=== PATIENT | female | born 1955 | race African-American/Black ===

== ENCOUNTER → 2020-08-25 | Outpatient (CLI) | payer OTHER | LOC: ULTRA 10:03 | PROVIDERS: ATTEND Family Medicine | DX: M79.661 Pain in right lower leg (principal) ==

== ENCOUNTER → 2021-02-23 | Outpatient (CLI) | payer OTHER | LOC: MRI 02-22 09:03 | PROVIDERS: ATTEND Family Medicine | DX: M47.816 Spondylosis without myelopathy or radiculopathy, lumbar region (principal) ==

== ENCOUNTER → 2021-02-23 | Outpatient (CLI) | payer OTHER | LOC: CAT 10:36 | PROVIDERS: ATTEND Family Medicine | DX: Z13.6 Encounter for screening for cardiovascular disorders (principal) ==

== ENCOUNTER → 2021-08-08 | Outpatient (CLI) | payer OTHER ==
[~2021-08-08] VITALS: Ht 167.6 cm; Wt 112.4 kg
[~2021-08-08] MED LIST: AMLODIPINE-OLM1 EAC3 PO; ASA81BEC PO; FUROSEMIDE 20 M20 MG PO; GARLIC1000 MG PO; GEMTESA75 MG PO; LIPITOR10 MG PO; MELOXICAM15 MG PO; OMEPRAZOLE40 MG PO; SERTRALINE HCL100 MG PO; TURMERIC COMPL1 EACH PO; VITAMIN B12-FO1 EAC1 PO; VITAMIN D325 MC2 PO
--- NOTE | ~2021-08-08 | HPC ---
[facility] [address] [address] PAIN MANAGEMENT CONSULTATION Name: CEM HUDDLESTON Room #: REG DORENE Del RioEde#: [id number] Admission: 08/08/21 Attend Phys: Joes Manuel Harris DO Discharge: Date of : 57 Report #: [id number] THIS REPORT FOR: cc: Jose Manuel Thomas,Jose Manuel Fleming DO ~ cc: Jose Manuel Thomas DO DATE OF SERVICE: 08/08/2021 REFERRING PHYSICIAN: Dr. Jose Manuel Thomas. CHIEF COMPLAINT: Low back pain, bilateral lower extremity pain. HISTORY OF PRESENT ILLNESS: As you know, the patient is a pleasant 66-year-old female who has had a 30-year history of low back pain with bilateral lower extremity pain. The patient states her pain began in the early and has just progressively worsened. There has been no injury or trauma. She has "just been putting up with it." She has noted increasing pain over the past couple of years that ultimately prompted a discussion with the primary care physician, Dr. Thomas, in regards to this chronic back pain issue. She has not had formalized physical therapy. She has been utilizing some [id number] medications for pain control. She has also been utilizing marijuana as part of her treatment options. She describes her pain as more of a constant, shooting, aching, throbbing, sharp, pounding sensation, exacerbated with walking, improves with sitting down. She has been reporting pain scores as high as 10/10. This has prompted a referral to our clinic to discuss interventional treatment options. The patient reports today her pain is continuous, steady constant and rhythmic. She describes the pain as shooting, aching, crushing, gnawing, throbbing, pounding, sharp and stabbing. Places pain score 10/10. Daily average at 10/10. Worst pain has been is 10/10. The patient states pain is exacerbated with walking, improves with sitting down. She localizes pain in the low back area and over the bilateral SI joints. She also is complaining of left hip pain. She has been referred to our service to discuss interventional treatment options. PAST MEDICAL HISTORY: 1. Hypertension. 2. Degenerative joint disease. 3. Osteoarthritis. 4. Dyslipidemia. PAST SURGICAL HISTORY: 1. Tonsillectomy. 2. Anal fissure repair. [address] [address] PAIN MANAGEMENT CONSULTATION Name: FLAQUITOFORT WAINWRIGHT Room #: REG DORENE Del RioEde#: [id number] Admission: 08/08/21 Attend Phys: Jose Manuel Harris DO Discharge: Date of : 57 Report #: [id number] 3. Appendectomy. 4. Cholecystectomy. 5. Hysterectomy. 6. Thyroidectomy. SOCIAL HISTORY: The patient denies tobacco, alcohol or IV or illicit drug use. She is retired, retired about 20 years ago. She is not receiving workmen's compensation nor is she trying to obtain disability benefits. She is not in litigation in regards to pain. She is unaccompanied at today's visit. REVIEW OF SYSTEMS: Positive for night sweats, fatigue and weakness, wearing corrective eyewear, hearing loss with tinnitus, palpitations, abdominal pain, frequent urination, nocturia, incontinence or dribbling to urine, tremors, varicose veins, depression, low back pain, bilateral lower extremity pain. All other review of systems negative per 12-point review of systems other than those listed in history of present illness. Pain impact score 51 of 70, severe interference of daily activities secondary to pain. ALLERGIES: CODEINE. CURRENT MEDICATIONS: Amlodipine/olmesartan 10/40 once a day, aspirin 81 mg per day, atorvastatin 10 mg per day, cholecalciferol 25 mcg per day, furosemide 20 mg once a day, garlic 1000 mg once a day, omeprazole 40 mg per day, sertraline 100 mg per day, turmeric 1 tab per day, Vibegron 75 mg once a day, cyanocobalamin 1 tab per day, meloxicam 15 mg once a day. IMAGING: MRI lumbar spine obtained 02/23/2021 shows L1-L2 unremarkable, L2-L3 shows bilateral facet arthropathy and ligamentum flavum hypertrophy. No central canal stenosis or neural foraminal stenosis. L3-L4 shows right posterior disk bulge, bilateral facet arthropathy and ligamentum flavum hypertrophy. No central canal or neural foraminal stenosis. L4-L5 shows bilateral facet arthropathy, ligament flavum hypertrophy. No significant central canal, only mild bilateral neural foraminal narrowing. PQRS: The patient has mild arthritic changes of lumbar spine. No rheumatoid arthritis. She does have mild bilateral hip osteoarthritis reported and bilateral knee pain, likely due to osteoarthritis. Pain intensity is reported 10/10. She is not a fall risk, has not had a fall in last 3 months. She is on no blood thinners, has treatment for hypertension. She is on no opioids, has a low opioid addiction potential. Pain impact is 51 of 70, severe interference of daily activities secondary to pain. PHYSICAL EXAMINATION: VITAL SIGNS: Blood pressure 157/85, pulse is 77, respiratory rate 20, [address] [address] PAIN MANAGEMENT CONSULTATION Name: CEM HUDDLESTON Room #: REG DORENE Salazar#: [id number] Admission: 08/08/21 Attend Phys: Jose Manuel Harris DO Discharge: Date of : 57 Report #: [id number] unlabored. The patient is 99% on room air. Height 5 feet 6 inches tall, weight 247.8 pounds, BMI calculated at 40. GENERAL: Well-developed, well-nourished, well-hydrated, class 3 morbidly obese, 66-year-old female appearing stated age, pain is rated today 10/10. HEENT: Normocephalic, atraumatic. Pupils are round. She is wearing a mask in compliance with COVID-19 regulations. LUNGS: Clear. No wheeze, rhonchi or rales. CARDIOVASCULAR: Regular. No appreciable gallop, no rub. ABDOMEN: Soft, obese. EXTREMITIES: Show no clubbing, no cyanosis, no edema. MUSCULOSKELETAL: Palpatory tenderness is noted over the bilateral SI joints, right greater than left. Deep palpation of the SI joints causes intensification of pain. Thigh thrust maneuver is positive on the right, mildly positive left. Jhoan's test is positive on the right and positive on the left. Sacroiliac compression test is positive on the right, equivocal left. Seated straight leg raising negative. Supine straight leg raising negative. Fabere's test is positive. Right and left modified Gaenslen's positive for axial low back pain. Ankle clonus negative. Babinski is negative. Intact to light touch from L1 through S2 dermatomes. Gait is mildly antalgic. ASSESSMENT: 1. Bilateral sacroiliac joint pain. 2. Chronic low back pain due to facet arthropathy. 3. Morbid obesity. 4. Chronic intractable pain. PLAN: 1. Based on today's physical exam and history the patient has provided, the description the patient uses in regards to pain as well as location of symptoms, it would appear the patient is suffering from bilateral SI joint pain. We have reviewed with the patient the MRI of her lumbar spine and pleased to advise the patient there is no significant central canal stenosis or neural foraminal stenosis, so the symptoms she is experiencing is not related to the lumbar region. We went over the patient's MRI in its entirety and the symptoms the patient is experiencing does not correlate to the findings of that MRI. The SI joint pain that the patient is experiencing does correlate to the distribution of symptoms the patient was experiencing. We discussed the treatment options for SI joint pain today. The following was discussed with the patient. We discussed physical therapy, stretching exercises and pelvic manipulation techniques to address sacroiliac joint dysfunction bilaterally, right greater than left. We discussed suggestions and medication management to be provided to the patient including nonsteroidal anti-inflammatories to address this issue. We discussed intraarticular sacroiliac joint injections and ultimately fusion of the sacroiliac joints. After reviewing the risks and benefits of all proposed treatment options, the patient chose to move forward with bilateral sacroiliac joint injections under fluoroscopic guidance. Due [place] [address] PAIN MANAGEMENT CONSULTATION Name: CEM HUDDLESTON Room #: REG DORENE Salazar#: [id number] Admission: 08/08/21 Attend Phys: Jose Manuel Harris DO Discharge: Date of : 57 Report #: [id number] restrictions, authorization has to be obtained before the patient could undergo bilateral sacroiliac joint injections. This authorization could take anywhere from 4 to 7 working days, will begin that process immediately. Once that authorization has been obtained, we will have the patient returned to undergo bilateral sacroiliac joint injections under fluoroscopic guidance. 2. No medication changes made at today's visit. We would recommend the patient undergo x-ray of the left hip. She is complaining of more hip related issues on the left side than on the right. We will have the patient undergo hip x-ray today. She is describing pain of a locking sensation or a feeling as if she is going to fall sensation from the left groin and left hip area, which is concerning for an impingement type syndrome. We will have the patient undergo the x-ray imaging, we will review those results once they are available. 3. We will see the patient back in followup visit once we have achieved the authorization to undergo bilateral sacroiliac joint injections under fluoroscopic guidance to address her chronic pain. 4. We wish to thank Dr. Thomas for the opportunity to see the patient in consultation. We will keep you apprised of response to treatment as we address bilateral sacroiliac joint pain. Again, we wish to thank you for the opportunity to see the patient in consultation. By: [id number] Jose Manuel Harris DO /melba
[2021-08-08 13:20] VITALS: BP 157/85
--- NOTE | 2021-08-08 13:59 | NUR ---
Pain Clinic Assessment: 1. History of Osteoarthritis: Not Applicable History of Rheumatoid Arthritis: Not Applicable 2. Height: 5 ft. 6 in. 167.6 cm. Weight: 247.8 lb. oz. 112.402 kg. Patient's BMI: 40.0 3. Vital Signs: BP: 157/85 Pulse: 77 Resp: 20 Temp: 02 Sat: 99 ECG Mon: 4. Pain Intensity: 10 5. Fall Risk: Dizziness: N Needs help standing or walking: N Fallen in the last 3 months: N Fall risk comments: 6. Patient on Blood Thinner: None 7. History of Hypertension: Y 8. Opioid Therapy greater than 6 weeks: N Opiate Contract Signed: 9. Risk Assessment Tool Provided: LOW 10. Functional Assessment Tool: / 11. Recreational Drug Use: Current within past 3 mos Drug Type: MARIJUANIA Tobacco Use: Never Smoker Tobacco Type: Amount or Packs/day: How Many Years: Alcohol Use: No Frequency: Quant:
== END ==
LOC: PAIN 10:08
PROVIDERS: ATTEND Anesthesiology Pain Medicine
DX: E66.01 Morbid (severe) obesity due to excess calories (principal); M53.3 Sacrococcygeal disorders, not elsewhere classified; G89.29 Other chronic pain; M25.552 Pain in left hip; Z79.899 Other long term (current) drug therapy; Z88.8 Allergy status to other drugs, medicaments and biological substances

== ENCOUNTER → 2021-08-15 | Outpatient (CLI) | payer OTHER ==
[~2021-08-15] VITALS: Ht 167.6 cm; Wt 111.4 kg
[2021-08-15 12:48] VITALS: BP 161/86
--- NOTE | 2021-08-15 12:59 | NUR ---
Pain Clinic Assessment: 1. History of Osteoarthritis: Not Applicable History of Rheumatoid Arthritis: Not Applicable 2. Height: 5 ft. 6 in. 167.6 cm. Weight: 245.6 lb. oz. 111.404 kg. Patient's BMI: 39.7 3. Vital Signs: BP: 161/86 Pulse: 77 Resp: 20 Temp: 02 Sat: 100 ECG Mon: 4. Pain Intensity: 10 5. Fall Risk: Dizziness: N Needs help standing or walking: N Fallen in the last 3 months: N Fall risk comments: 6. Patient on Blood Thinner: None 7. History of Hypertension: Y 8. Opioid Therapy greater than 6 weeks: N Opiate Contract Signed: 9. Risk Assessment Tool Provided: LOW 10. Functional Assessment Tool: / 11. Recreational Drug Use: Current within past 3 mos Drug Type: Tobacco Use: Never Smoker Tobacco Type: Amount or Packs/day: How Many Years: Alcohol Use: No Frequency: Quant:
--- NOTE | 2021-08-22 08:06 | HPC ---
[address] [address] PAIN MANAGEMENT CONSULTATION Name: CEM HUDDLESTON Room #: REG DORENE Marie#: [id number] Admission: 08/15/21 Attend Phys: Jose Manuel Harris DO Discharge: Date of : 57 Report #: [id number] THIS REPORT FOR: cc: Jose Manuel Thomas,Jose Manuel Fleming DO ~ cc: Jose Manuel Thomas DO DATE OF SERVICE: 08/15/2021 REFERRING PHYSICIAN: Jose Manuel Thomas DO CHIEF COMPLAINT: Bilateral upper buttock pain and chronic low back pain. HISTORY OF PRESENT ILLNESS: As you know, the patient is a pleasant 66-year-old female with a 30-year history of low back pain and bilateral upper buttock pain. She states her pain began in early . She was seen in consultation per the request of Dr. Thomas on 08/08/2021. She was diagnosed with bilateral sacroiliac joint dysfunction and chronic low back pain due to facet arthropathy. She was established today's appointment to undergo bilateral SI joint injections under fluoroscopic guidance. We had to obtain the authorization for the patient to undergo the procedure. We have received that authorization. She returns today to undergo the injection. The patient reports pain level today of 10/10. She has had no changes in medication management since our last visit and no new injuries or traumas. ALLERGIES: CODEINE. CURRENT MEDICATIONS: See chart. SOCIAL HISTORY: The patient denies tobacco, alcohol or IV or illicit drug use. She is retired, retired about 20 years ago, unaccompanied today. IMAGING: No new imaging available. PQRS: The patient has mild arthritic changes of lumbar spine. No rheumatoid arthritis. She has mild bilateral hip osteoarthritis and bilateral knee arthritis. She is placing pain intensity 10/10. She is not a fall risk, has not had a fall in last 3 months. She is not on blood thinners, but is treated for hypertension. She is on no opioids, has a low opioid addiction potential. Pain impact is 51/70, severe interference of daily activities secondary to pain. PHYSICAL EXAMINATION: VITAL SIGNS: Blood pressure 161/86, pulse is 77, respiratory rate 20, unlabored. The patient 100% on room air. Height 5 feet 6 inches tall, weight 245.6 pounds, BMI calculated 39.7. GENERAL: Well-developed, well-nourished, well-hydrated, morbidly obese [address] [address] PAIN MANAGEMENT CONSULTATION Name: CEM HUDDLESTON Room #: REG [facility]#: [id number] Admission: 08/15/21 Attend Phys: Jose Manuel Harris DO Discharge: Date of : 56 Report #: [id number] 66-year-old female appearing stated age, pain is rated today 10/10. HEENT: Normocephalic, atraumatic. Pupils are round. She is wearing a mask in compliance with COVID-19 regulations. EXTREMITIES: Show no clubbing, no cyanosis. No appreciable edema. MUSCULOSKELETAL: Palpatory tenderness is noted once again over the bilateral SI joints. Thigh thrust maneuver is positive bilaterally, right greater than left. Jhoan's test is positive, more on the right than the left. Sacroiliac compression test is positive on the right, equivocal left. ASSESSMENT: 1. Bilateral sacroiliac joint pain. 2. Chronic low back pain due to mild facet arthropathy. 3. Morbid obesity. 4. Chronic intractable pain. PLAN: 1. The patient returns today in followup visit to begin treatment for bilateral SI joint dysfunction. We have established today's appointment and have received authorization for the patient to undergo bilateral SI joint injections today. She has been advised of the risks and the benefits of this procedure. These risks include but are not necessarily limited to bleeding, bruising, infection, worsening of pain, no relief of pain, also risk of temporary or permanent muscle weakness, temporary or permanent nerve damage, possible paralysis, post-dural puncture headache and . The patient states understood and wished to proceed. 2. No medication changes made at today's visit. We recommend the patient continue current medical therapy as prior prescribed. 3. We will see the patient back in followup visit on an as needed basis for the next in the series of bilateral SI joint injections. We are hopeful the patient will see good and prolonged benefit with the procedure provided today. PROCEDURE NOTE DESCRIPTION OF PROCEDURE: Bilateral sacroiliac joint injections under fluoroscopic guidance. After obtaining written consent, the patient was taken back to fluoroscopy suite, placed in prone position with pillow under the pelvis to decrease lumbar lordosis. Skin overlying the gluteal sacral area was then prepped and draped with aseptic fashion using chlorhexidine. A medial to lateral oblique projection allowed separation of the anterior and posterior joint spaces to be visualized. The skin and subcutaneous tissue overlying target site injection was anesthetized with 3 mL of 1% lidocaine utilizing a 27-gauge 1-1/4-inch needle bilaterally. Two 22-gauge 3-1/2-inch spinal needles with bent tips were then directed to the inferior aspect of the [address] [address] PAIN MANAGEMENT CONSULTATION Name: CEM HUDDLESTON Room #: REG DORENE Salazar#: [id number] Admission: 08/15/21 Attend Phys: Jose Manuel Harris DO Discharge: Date of : 57 Report #: [id number] sacroiliac joint using a posterior approach. A "giving away" at the needle hub was noted once the dorsal sacroiliac and interosseous ligaments were engaged, both on the right and left side. After negative aspiration for heme, a total of 0.3 mL of Omnipaque was injected into the right SI joint and 0.4 mL of Omnipaque injected to the left sacroiliac joint, both showing the inferior recess of the joint outlined with the dye. Pain provocations were not noted with the injections. After negative aspiration for heme, 3 mL of a solution containing 1 mL 40 mg per mL, 40 mg total triamcinolone and 2 mL of bupivacaine 0.5% was injected on the right side. Needle was then retracted approximately residential then flushed with 1 mL of 1% lidocaine, then removed. Next, 3 mL of a solution containing 1 mL 40 mg per mL, 40 mg total triamcinolone along with 2 mL of bupivacaine 0.5% was then injected into the left sacroiliac joint. The needle was then retracted residential, flushed with 1 mL of bupivacaine 0.5%, then removed. Sterile bandage was placed over each of the injection site. The patient tolerated the procedure well, carefully escorted to recovery room in stable condition. No apparent complications. The patient reports a pain reduction of greater than 50% prior to discharge. After meeting our discharge criteria, the patient discharged home. <ELECTRONICALLY SIGNED> By: Jose Manuel Harris DO 08/22/21 [id number] Jose Manuel Harris DO /nt
== END ==
LOC: PAIN 10:45
PROVIDERS: ATTEND Anesthesiology Pain Medicine
DX: M46.1 Sacroiliitis, not elsewhere classified (principal); E66.01 Morbid (severe) obesity due to excess calories; G89.29 Other chronic pain; M54.50 Low back pain, unspecified; Z88.5 Allergy status to narcotic agent; Z79.899 Other long term (current) drug therapy; Z98.890 Other specified postprocedural states; Z68.39 Body mass index [BMI] 39.0-39.9, adult